=== PATIENT | male | born 1940 | race Caucasian/White ===

== ENCOUNTER 2017-01-15 00:35 | Inpatient (IN) | payer OTHER ==
--- NOTE | 2017-01-15 00:50 | CPEKG ---
Heart Rate: 82 RR Interval: 732 QRSD Interval: 80 QT Interval: 408 QTC Interval: 477 QRS [place]: 69 T Wave [place]: 62 EKG Severity - ABNORMAL ECG - EKG Impression: ATRIAL FIBRILLATION EKG Impression: BORDERLINE PROLONGED QT INTERVAL Electronically Signed By: Umer Bañuelos 15-Jan-2017 06:38:30
[2017-01-15] MEDS ORDERED: ONDANSETRON 4 MG/2 ML VIAL ONE (00:51)
[2017-01-15] MEDS ORDERED: HYDROmorphONE/DILAUDID 1 MG/ML INJ ONE (00:59)
[2017-01-15] MEDS ORDERED: HYDROmorphONE/DILAUDID 1 MG/ML INJ IVP ONE ×3 (01:01→01:57)
[2017-01-15] MEDS ORDERED: ONDANSETRON 4 MG/2 ML VIAL IVP ONE ×2 (01:08→03:20)
[2017-01-15] MEDS ORDERED: PANTOPRAZOLE SODIUM 40 MG VIAL IVP ONE (01:09)
[2017-01-15] MEDS ORDERED: NS 1,000 ML IV ONE (01:09)
[2017-01-15] MEDS ORDERED: IOPAMIDOL (ISOVUE-300) 100 ML BTL ONE (01:12)
--- NOTE | 2017-01-15 01:12 | EDPHY ---
H & P Stated Complaint: EPIGASTRIC PAIN AFTER EATING A BIG MAC AT 7 P.M. Time Seen by Provider: 01/15/17 00:55 HPI/ROS: Chief Complaint: Abdominal pain HPI: 76-year-old male with past medical history of hypertension began having epigastric and left upper abdominal pain about 7 o'clock this evening. Has some nausea but no vomiting. No fevers or chills. No chest pain or shortness of breath. Pain is constant. Severe at an 9/10. Does not have a history of similar pain in the past. Is denies any dark tarry stools or blood in his stool. There are no aggravating or alleviating factors. ROS: 10 point Review of Systems is negative except as noted in the HPI. PMH: Hypertension Medications: Lisinopril Social History: No smoking, occasional alcohol, no recreational drug use Family History: non-contributory Physical Exam: Gen: Awake, Alert, No Distress HEENT: Nose: no rhinorrhea Eyes: PERRLA, EOMI Mouth: Moist mucosa Neck: Supple, no JVD Chest: nontender, lungs clear to auscultation Heart: S1, S2 normal, no murmur Abd: Soft, moderate epigastric tenderness with voluntary guarding with some left upper quadrant tenderness as well. Ext: no edema, non-tender Skin: no rash Neuro: CN II-XII intact, Sensation grossly intact, Strength 5/5 in bilateral upper and lower extremities - Personal History Current Tetanus/Diphtheria Vaccine: Unsure Current Tetanus Diphtheria and Acellular Pertussis (TDAP): Unsure - Medical/Surgical History Hx Asthma: No Hx Chronic Respiratory Disease: No Hx Diabetes: No Hx Cardiac Disease: No Hx Renal Disease: No Hx Cirrhosis: No Hx Alcoholism: No Hx HIV/AIDS: No Hx Splenectomy or Spleen Trauma: No Other PMH: HTN, - Social History Smoking Status: Never smoked Constitutional: Initial Vital Signs Temperature (C) 36.8 C 01/15/17 00:36 Heart Rate 71 01/15/17 00:36 Respiratory Rate 18 01/15/17 00:36 Blood Pressure 153/86 H 01/15/17 00:36 O2 Sat (%) 93 01/15/17 00:36 O2 Delivery Mode Nasal Cannula O2 (L/minute) 2 Allergies/Adverse Reactions: No Known Allergies Allergy (Unverified 01/15/17 00:38) Home Medications: Medication Instructions Recorded Lisinopril 10 mg PO 01/15/17 Medical Decision Making - Diagnostics Imaging Results: CT scan shows fluid around the pancreas, no other acute intra-abdominal process per Dr. Workman. There are no findings suggestive of cholecystitis. There is no intrahepatic ductal dilatation. No other findings suggestive of gallstone at this time. ED Course/Re-evaluation: Patient's lipase is noted. He has no elevation is LFTs. No findings suggestive of acute cholecystitis or common bile duct stone. He has required multiple doses of Dilaudid. Plan will be for admission. I have discussed with Dr. Vazquez, hospitalist. Will admit to his service for further care. - Data Points Laboratory Results: Laboratory Results 01/15/17 00:50 01/15/17 00:50 01/15/17 01/15/17 00:50 00:50 WBC 13.52 10^3/uL H 10^3/uL (3.80-9.50) RBC 5.38 10^6/uL 10^6/uL (4.40-6.38) Hgb 16.3 g/dL g/dL (13.7-17.5) Hct 47.5 % % (40.0-51.0) MCV 88.3 fL fL (81.5-99.8) MCH 30.3 pg pg (27.9-34.1) MCHC 34.3 g/dL g/dL (32.4-36.7) RDW 13.4 % % (11.5-15.2) Plt Count 306 10^3/uL 10^3/uL (150-400) MPV 9.9 fL fL (8.7-11.7) Neut % (Auto) 90.4 % H % (39.3-74.2) Lymph % (Auto) 5.3 % L % (15.0-45.0) [place] % (Auto) 3.6 % L % (4.5-13.0) Eos % (Auto) 0.0 % L % (0.6-7.6) Baso % (Auto) 0.2 % L % (0.3-1.7) Nucleat RBC Rel Count 0.0 % % (0.0-0.2) Absolute Neuts (auto) 12.21 10^3/uL H 10^3/uL (1.70-6.50) Absolute Lymphs (auto) 0.72 10^3/uL L 10^3/uL (1.00-3.00) Absolute Monos (auto) 0.49 10^3/uL 10^3/uL (0.30-0.80) Absolute Eos (auto) 0.00 10^3/uL L 10^3/uL (0.03-0.40) Absolute Basos (auto) 0.03 10^3/uL 10^3/uL (0.02-0.10) Absolute Nucleated RBC 0.00 10^3/uL 10^3/uL (0-0.01) Immature Gran % 0.5 % % (0.0-1.1) Immature Gran # 0.07 10^3/uL 10^3/uL (0.00-0.10) Sodium 141 mEq/L mEq/L (134-144) Potassium 4.1 mEq/L mEq/L (3.5-5.2) Chloride 100 mEq/L mEq/L (97-110) Carbon Dioxide 24 mEq/l mEq/l (22-31) Anion Gap 17 mEq/L H mEq/L (8-16) BUN 16 mg/dL mg/dL (7-23) Creatinine 1.0 mg/dL mg/dL (0.7-1.3) Estimated GFR > 60 Glucose 174 mg/dL H mg/dL (70-100) Calcium 9.3 mg/dL mg/dL (8.5-10.4) Total Bilirubin 0.9 mg/dL mg/dL (0.1-1.4) AST 26 IU/L IU/L (17-59) ALT 29 IU/L IU/L (21-72) Alkaline Phosphatase 82 IU/L IU/L (38-126) Troponin I < 0.012 ng/mL ng/mL (0.000-0.034) Total Protein 7.5 g/dL g/dL (6.3-8.2) Albumin 4.0 g/dL g/dL (3.5-5.0) Lipase 6438 IU/L H IU/L (23-300) Medications Given: Discontinued Medications Hydromorphone HCl (Dilaudid) 1 mg IVP EDNOW ONE Stop: 01/15/17 01:02 Last Admin: 01/15/17 01:03 Dose: 1 mg Hydromorphone HCl (Dilaudid) 0.5 mg IVP EDNOW ONE Stop: 01/15/17 01:09 Last Admin: 01/15/17 01:09 Dose: 0.5 mg Hydromorphone HCl (Dilaudid) 1 mg IVP EDNOW ONE Stop: 01/15/17 01:58 Last Admin: 01/15/17 02:01 Dose: 1 mg Sodium Chloride (Ns) 1,000 mls @ 0 mls/hr IV ONCE ONE PRN Reason: Wide Open Stop: 01/15/17 01:10 Last Admin: 01/15/17 01:10 Dose: 1,000 mls Ondansetron HCl (Zofran) 4 mg IVP EDNOW ONE Stop: 01/15/17 01:09 Last Admin: 01/15/17 01:10 Dose: 4 mg Pantoprazole Sodium (Protonix) 40 mg IVP EDNOW ONE Stop: 01/15/17 01:10 Last Admin: 01/15/17 01:13 Dose: 40 mg Departure - Departure Disposition: [facility] Inpatient Acute Clinical Impression: Pancreatitis Condition: Fair Referrals: NIKKY ABBOTT [Primary Care Provider] - As per Instructions
[2017-01-15 01:26] LABS: ALANINE AMINOTRANSFERASE 29 IU/L (21-72); ALKALINE PHOSPHATASE 82 IU/L (38-126); ANION GAP 17 mEq/L (8-16); ASPARTATE AMINOTRANSFERASE 26 IU/L (17-59); BILIRUBIN,TOTAL 0.9 mg/dL (0.1-1.4); CALCIUM 9.3 mg/dL (8.5-10.4); CARBON DIOXIDE 24 mEq/l (22-31); CHLORIDE 100 mEq/L (97-110); GLOMERULAR FILTRATION RATE > 60; GLUCOSE 174 mg/dL (70-100); POTASSIUM 4.1 mEq/L (3.5-5.2); SODIUM 141 mEq/L (134-144); TOTAL PROTEIN 7.5 g/dL (6.3-8.2)
[2017-01-15 01:37] LABS: % IMMATURE GRANULYOCYTES 0.5 % (0.0-1.1); ABSOLUTE IMMATURE GRANULOCYTES 0.07 10^3/uL (0.00-0.10); ADD DIFF? NO; ADD MORPH? NO; ADD SCAN? NO; ATYPICAL LYMPHOCYTE FLAG 10 (0-99); FRAGMENT RBC FLAG 0 (0-99); HEMATOCRIT 47.5 % (40.0-51.0); HEMOGLOBIN 16.3 g/dL (13.7-17.5); LEFT SHIFT FLG 0 (0-99); LIPEMIA HEMOLYSIS FLAG 90 (0-99); MEAN CELL HEMOGLOBIN 30.3 pg (27.9-34.1); MEAN CELL HEMOGLOBIN CONCENTR. 34.3 g/dL (32.4-36.7); MEAN CELL VOLUME 88.3 fL (81.5-99.8); MEAN PLATELET VOLUME 9.9 fL (8.7-11.7); PLATELET CLUMPS FLAG 10 (0-99); PLATELET COUNT 306 10^3/uL (150-400); RED BLOOD CELL COUNT 5.38 10^6/uL (4.40-6.38); RED CELL DISTRIBUTION WIDTH 13.4 % (11.5-15.2); TROPONIN I < 0.012 ng/mL (0.000-0.034)
[2017-01-15] MEDS ORDERED: ZOLPIDEM TARTRATE 5 MG TAB PO ONE (01:40)
[2017-01-15] MEDS ORDERED: lamoTRIgine 25 MG TAB PO ONE (01:40)
[2017-01-15] MEDS ORDERED: LURASIDONE HCL 40 MG TAB PO ONE (01:41)
[2017-01-15] MEDS ORDERED: HYDROmorphONE/DILAUDID 1 MG/ML INJ IVP PRN (02:19)
[2017-01-15] MEDS ORDERED: oxyCODONE IR 5 MG TAB PO PRN (02:19)
[2017-01-15] MEDS ORDERED: ONDANSETRON 4 MG/2 ML VIAL IVP PRN (02:19)
[2017-01-15] MEDS ORDERED: ONDANSETRON DISINTEGRATING 4 MG TAB PO PRN (02:19)
--- NOTE | 2017-01-15 02:42 | PDGENHP ---
History and Physical - Chief Complaint Abdominal pain - History of Present Illness 76 yo M w/ HTN presents with abdominal pain. Patient reports first noticing epigastric abdominal pain around 7 PM last evening. He then developed vomiting. The pain became severe so he came to the ED. He has never had pain like this in the past. Of note, he has been dealing with flu-like symptoms for about 10 days prior to this, which he thinks are now improving. He drinks 1-2 beers weekly and does not smoke cigarettes. In the ED lipase was elevated and CT was c/w pancreatic inflammation. Patient was admitted for management of pancreatitis of unclear etiology. History Information - Allergies/Home Medication List Allergies/Adverse Reactions: No Known Allergies Allergy (Unverified 01/15/17 00:38) Home Medications: Lisinopril 10 mg PO 01/15/17 [Last Taken Unknown] I have personally reviewed and updated: family history, medical history - Past Medical History hypertension - Family History Additional family history: Asked, denies family hx of pancreatitis - Social History Smoking Status: Never smoked Alcohol Use: Occasionally (1-2 beers weekly) Review of Systems Review of Systems: ROS: 10pt was reviewed & negative except for what was stated in HPI & below Physical Exam Physical Exam: Temp Pulse Resp BP Pulse Ox 36.7 C 74 16 174/96 H 95 01/15/17 02:02 01/15/17 02:02 01/15/17 02:02 01/15/17 02:02 01/15/17 02:02 Constitutional: no apparent distress, uncomfortable Eyes: PERRL, EOMI Ears, Nose, Mouth, Throat: moist mucous membranes, no oral mucosal ulcers Cardiovascular: regular rate and rhythym, no murmur, rub, or gallop Respiratory: no respiratory distress, clear to auscultation Gastrointestinal: normoactive bowel sounds, tenderness (Epi-gastric), No jackman' s sign, No guarding, No rebound, No distension Skin: warm, normal color Neurologic: AAOx3, CN II-XII Intact Psychiatric: interacting appropriately, not anxious Lab Data & Imaging Review 01/15/17 00:50 01/15/17 00:50 WBC 13.52 10^3/uL (3.80-9.50) H 01/15/17 00:50 RBC 5.38 10^6/uL (4.40-6.38) 01/15/17 00:50 Hgb 16.3 g/dL (13.7-17.5) 01/15/17 00:50 Hct 47.5 % (40.0-51.0) 01/15/17 00:50 MCV 88.3 fL (81.5-99.8) 01/15/17 00:50 MCH 30.3 pg (27.9-34.1) 01/15/17 00:50 MCHC 34.3 g/dL (32.4-36.7) 01/15/17 00:50 RDW 13.4 % (11.5-15.2) 01/15/17 00:50 Plt Count 306 10^3/uL (150-400) 01/15/17 00:50 MPV 9.9 fL (8.7-11.7) 01/15/17 00:50 Neut % (Auto) 90.4 % (39.3-74.2) H 01/15/17 00:50 Lymph % (Auto) 5.3 % (15.0-45.0) L 01/15/17 00:50 [place] % (Auto) 3.6 % (4.5-13.0) L 01/15/17 00:50 Eos % (Auto) 0.0 % (0.6-7.6) L 01/15/17 00:50 Baso % (Auto) 0.2 % (0.3-1.7) L 01/15/17 00:50 Nucleat RBC Rel Count 0.0 % (0.0-0.2) 01/15/17 00:50 Absolute Neuts (auto) 12.21 10^3/uL (1.70-6.50) H 01/15/17 00:50 Absolute Lymphs (auto) 0.72 10^3/uL (1.00-3.00) L 01/15/17 00:50 Absolute Monos (auto) 0.49 10^3/uL (0.30-0.80) 01/15/17 00:50 Absolute Eos (auto) 0.00 10^3/uL (0.03-0.40) L 01/15/17 00:50 Absolute Basos (auto) 0.03 10^3/uL (0.02-0.10) 01/15/17 00:50 Absolute Nucleated RBC 0.00 10^3/uL (0-0.01) 01/15/17 00:50 Immature Gran % 0.5 % (0.0-1.1) 01/15/17 00:50 Immature Gran # 0.07 10^3/uL (0.00-0.10) 01/15/17 00:50 Sodium 141 mEq/L (134-144) 01/15/17 00:50 Potassium 4.1 mEq/L (3.5-5.2) 01/15/17 00:50 Chloride 100 mEq/L (97-110) 01/15/17 00:50 Carbon Dioxide 24 mEq/l (22-31) 01/15/17 00:50 Anion Gap 17 mEq/L (8-16) H 01/15/17 00:50 BUN 16 mg/dL (7-23) 01/15/17 00:50 Creatinine 1.0 mg/dL (0.7-1.3) 01/15/17 00:50 Estimated GFR > 60 01/15/17 00:50 Glucose 174 mg/dL (70-100) H 01/15/17 00:50 Calcium 9.3 mg/dL (8.5-10.4) 01/15/17 00:50 Total Bilirubin 0.9 mg/dL (0.1-1.4) 01/15/17 00:50 AST 26 IU/L (17-59) 01/15/17 00:50 ALT 29 IU/L (21-72) 01/15/17 00:50 Alkaline Phosphatase 82 IU/L (38-126) 01/15/17 00:50 Troponin I < 0.012 ng/mL (0.000-0.034) 01/15/17 00:50 Total Protein 7.5 g/dL (6.3-8.2) 01/15/17 00:50 Albumin 4.0 g/dL (3.5-5.0) 01/15/17 00:50 Lipase 6438 IU/L (23-300) H 01/15/17 00:50 Imaging Review: CT A/P reveals acute pancreatitis w/ paracolic fluid. Visualized and Interpreted EKG results: Yes EKG Interpretation: Positive for: other (Aflutter w/ variable block) Assessment & Plan Assessment: 76 yo M w/ hx of HTN presents w/ acute pancreatitis of unclear etiology. Plan: 1. Acute pancreatitis - Unclear etiology; lipase >6000, BISAP score of 1 denoting generally low risk for complications. Patient does not have a significant ETOH history and denies prior gallstones. He has had a cold for about 10 days so could be a viral etiology. Also, patient on lisinopril, which has a ~1% known risk of medication induced pancreatitis. - NPO, mIVF w/ NS @ 200 - Oxycodone, Dilaudid PRN for pain - RUQ U/S to evaluate for gallstones - Will change lisinopril 10 mg qD to amlodipine 10 mg qD 2. Afib/flutter - Incidentally found on admission ECG. Patient hemodynamically stable and rate controlled without medication. He has no prior history of this. [id number] of 3 for HTN and age, so could consider AC. - Monitor on telemetry - Consider AC vs. ASA after acute illness 3. HTN - Will change lisinopril to amlodipine as above. Diet - NPO, ADAT Code - Full Ppx - SCDs Dispo - Admit to observation status
[2017-01-15] MEDS ORDERED: HYDROmorphONE/DILAUDID 2 MG/ML INJ IVP ONE (03:20)
[2017-01-15] MEDS ORDERED: PROMETHAZINE HCL 25 MG/ML INJ IVP PRN (04:05)
[2017-01-15] MEDS: NS 1,000 ML IV SCH ×4 (04:12→19:21)
[2017-01-15 04:34] LABS: % IMMATURE GRANULYOCYTES 0.4 % (0.0-1.1); ABSOLUTE IMMATURE GRANULOCYTES 0.07 10^3/uL (0.00-0.10); ADD DIFF? NO; ADD MORPH? NO; ADD SCAN? NO; ATYPICAL LYMPHOCYTE FLAG 0 (0-99); FRAGMENT RBC FLAG 0 (0-99); HEMATOCRIT 46.5 % (40.0-51.0); HEMOGLOBIN 15.5 g/dL (13.7-17.5); LEFT SHIFT FLG 0 (0-99); LIPEMIA HEMOLYSIS FLAG 80 (0-99); MEAN CELL HEMOGLOBIN 29.5 pg (27.9-34.1); MEAN CELL HEMOGLOBIN CONCENTR. 33.3 g/dL (32.4-36.7); MEAN CELL VOLUME 88.6 fL (81.5-99.8); MEAN PLATELET VOLUME 9.7 fL (8.7-11.7); PLATELET CLUMPS FLAG 10 (0-99); PLATELET COUNT 282 10^3/uL (150-400); RED BLOOD CELL COUNT 5.25 10^6/uL (4.40-6.38); RED CELL DISTRIBUTION WIDTH 13.4 % (11.5-15.2)
[2017-01-15 04:42] LABS: ANION GAP 15 mEq/L (8-16); CALCIUM 8.6 mg/dL (8.5-10.4); CARBON DIOXIDE 21 mEq/l (22-31); CHLORIDE 103 mEq/L (97-110); CREATININE 0.8 mg/dL (0.7-1.3); GLOMERULAR FILTRATION RATE > 60; GLUCOSE 171 mg/dL (70-100); SODIUM 139 mEq/L (134-144)
--- NOTE | 2017-01-15 10:11 | ASMTCASEMG ---
Living Arrangements What is your living Answers: With Spouse arrangement? Who do you live with? Type Of Residence What kind of residence do Answers: House you live in? Discharge Plan Comments Coordination Status Comments Notes: CM spoke w/ LAURA Bentley regarding D/C POC. Pt is a 76 y/o man admitted for pancreatitis. Anticipates that pt will d/c independent when medically stable w/ supportive . No therapies ordered at this time. CM available for d/c needs. Plan: Independent Date Signed: 01/15/2017 10:11 AM Electronically Signed By:MINNA Maradiaga
[2017-01-15 10:19] LABS: COLOR YELLOW; LEUKOCYTE ESTERASE,URINE NEGATIVE (NEGATIVE); NITRITE,URINE NEGATIVE (NEGATIVE)
[2017-01-15 10:24] LABS: MUCUS TRACE /lpf (NONE-1+)
--- NOTE | 2017-01-15 12:08 | CPEKG ---
Heart Rate: 102 RR Interval: 588 P-R Interval: 208 QRSD Interval: 78 QT Interval: 340 QTC Interval: 443 P [place]: 61 QRS [place]: 67 T Wave [place]: 14 EKG Severity - OTHERWISE NORMAL ECG - EKG Impression: SINUS TACHYCARDIA Electronically Signed By: John Bergman 15-Jan-2017 13:10:02
--- NOTE | 2017-01-15 13:37 | HOSPPROG ---
Hospitalist Progress Note Assessment/Plan: #Acute pancreatis: denies heavy Etoh, no family or personal h/o stones. May be due to DAVID-I?. This was changed -no e/o abscess or necrosis on CT. -supportive care: IVFs, antiemetics, IV morphine (nausea with Dilaudid) #Leukocytosis: suspect stress reaction. Afebrile. No e/o abscess on imaging. Monitor closely #Paroxysmal a fib: no prior episodes, likely triggered by acute illness. Repeat EKG CHADsVasc 3 Can consider AC; I discussed anticoagulation with he and . #Accelerated HTN: driven by pain. Changed DAVID-I to Norvasc #NPO #DVT ppx: SCDs #Disp: warrants inpatient admission with acute pancreatitis, requiring IV opioids, fluids Subjective: 08/25 crampy abd pain. Nausea with dilaudid Objective: Vital Signs Temp Pulse Resp BP Pulse Ox 37.0 C 105 H 13 175/97 H 93 01/15/17 11:30 01/15/17 11:30 01/15/17 11:30 01/15/17 11:30 01/15/17 11:30 Laboratory Results 01/15/17 04:08 01/15/17 04:08 01/14/17 01/15/17 01/16/17 05:59 05:59 05:59 Intake Total 1000 Balance 1000 - Physical Exam Constitutional: uncomfortable Eyes: PERRL Ears, Nose, Mouth, Throat: dry mucous membranes Cardiovascular: regular rate and rhythym, no murmur, rub, or gallop Respiratory: no respiratory distress Gastrointestinal: tenderness (dolly LUQ, epigastrum, quiet BS), No rebound, No distension Genitourinary: no bladder fullness Skin: warm Musculoskeletal: full muscle strength Neurologic: AAOx3 Psychiatric: interacting appropriately ICD10 Worksheet Patient Problems: Problems Problem Status Onset Pancreatitis Acute
[2017-01-16] MEDS: NS 1,000 ML IV SCH ×4 (00:33→13:56)
[2017-01-16 04:16] LABS: HEMATOCRIT 44.4 % (40.0-51.0); HEMOGLOBIN 15.3 g/dL (13.7-17.5); MEAN CELL HEMOGLOBIN 30.8 pg (27.9-34.1); MEAN CELL HEMOGLOBIN CONCENTR. 34.5 g/dL (32.4-36.7); MEAN CELL VOLUME 89.3 fL (81.5-99.8); RED BLOOD CELL COUNT 4.97 10^6/uL (4.40-6.38); RED CELL DISTRIBUTION WIDTH 14.2 % (11.5-15.2)
[2017-01-16] MEDS ORDERED: FLU VACC QS 2017-18 (3YR+)/PF 0.5 ML SYR (FLUARIX QUAD) IM ONE (08:21)
[2017-01-16] MEDS ORDERED: PNEUMOC 13-VAL CONJ-DIP CRM/PF 0.5 ML SYR IM ONE (08:21)
[2017-01-16] MEDS ORDERED: HYDROmorphone HCL/NS/PF 0.4 MG/2 ML SYR IVP PRN (09:00)
[2017-01-16] MEDS ORDERED: NS 500 ML IV ONE (11:18)
--- NOTE | 2017-01-16 11:20 | HOSPPROG ---
Hospitalist Progress Note Assessment/Plan: 76 yo M with pmh of HTN presenting with acute pancreatitis # acute pancreatitis: with significant abdominal pain and lipase > 6000 as well as radiographic evidence of pancreatitis. Etiology unclear--no history of heavy drinking, no gallstones on imaging. Will get lipid panel to r/o hypertriglyceridemia and MRCP given patients age etc to firmly r/o anatomic abnormality. Other potential etiologies would include idiopathic versus medication related (lisinopril? though has been on that x 2 years) versus autoimmune. Continue conservative mgmt with IVF, bowel rest, IV opiates and IV antiemetics # leukocytosis: wbc continues to rise significantly, patient is afebrile and suspect this is all driven by pancreatitis rather than a secondary infection, will continue to trend, again MRCP pending # paroxysmal a fib: new dx apparently since admission, likely driven by pancreatitis, rate improved with IV metop and will transition to oral metop and monitor # htn: previously uncontrolled, will continue amlodipine and now metoprolol as above # dvt ppx: will start lovenox # IP status, suspect he will require > 48 hours stay for eval/mgmt of above Patient new to my care. Old records reviewed and summarized as above. Care plan reviewed with patients present at bedside. Subjective: no significant overnight events, patient notes he does not feel much better if at all today, continues to have abdominal pain Objective: Vital Signs Temp Pulse Resp BP Pulse Ox 36.3 C 110 H 28 H 133/86 H 90 L 01/16/17 10:49 01/16/17 10:49 01/16/17 10:49 01/16/17 10:49 01/16/17 10:49 Laboratory Results 01/16/17 03:29 01/15/17 01/16/17 01/17/17 05:59 05:59 05:59 Output Total 1550 400 Balance -1550 -400 awake alert mild distress anicteric op clear irreg irreg no mrg cta b soft ttp mid epigastric region dec bs throughout no rebound or guarding no cce warm dry well perfused oriented appropriate ICD10 Worksheet Patient Problems: Problems Problem Status Onset Pancreatitis Acute
[2017-01-16] MEDS: METOPROLOL TARTRATE 5 MG/5 ML INJ IVP SCH ×3 (12:40→13:06)
[2017-01-16] MEDS ORDERED: MAGNESIUM HYDROXIDE 30 ML UDCUP PO PRN (14:07)
[2017-01-16] MEDS ORDERED: POLYETHYLENE GLYCOL 3350 17 GM PKT PO PRN (14:07)
[2017-01-16] MEDS ORDERED: LACTULOSE 20 GM/30 ML UDCUP PO PRN (14:07)
[2017-01-16] MEDS ORDERED: BISACODYL 10 MG SUPP PR PRN (14:07)
[2017-01-16] MEDS: ENOXAPARIN 40 MG/0.4 ML SYR SC SCH (17:45)
[2017-01-16 18:44] LABS: CHOLESTEROL 87 mg/dL (140-220); CHOLESTEROL/HDL RATIO 2.18 RATIO (1.00-4.97); HIGH DENSITY LIPOPROTEIN 40 mg/dL (40-65); LDL/HDL RATIO 0.98 RATIO (1.00-3.64); LOW DENSITY LIPOPROTEIN 39 mg/dL (80-100); NON-HIGH DENSITY LIPOPROTEIN 47 mg/dL (90-129); TRIGLYCERIDE 43 mg/dL (40-150); VERY LOW DENSITY LIPOPROTEINS 8 mg/dL (8-25)
[2017-01-16] MEDS: METOPROLOL TARTRATE 25 MG TAB PO SCH (20:04)
[2017-01-16] MEDS: SENNOSIDES/DOCUSATE SODIUM TAB PO SCH (20:04)
[2017-01-17 04:52] LABS: ADD DIFF? YES; ADD MORPH? NO; ADD SCAN? NO; ATYPICAL LYMPHOCYTE FLAG 0 (0-99); FRAGMENT RBC FLAG 0 (0-99); HEMATOCRIT 44.4 % (40.0-51.0); HEMOGLOBIN 14.5 g/dL (13.7-17.5); LEFT SHIFT FLG 0 (0-99); LIPEMIA HEMOLYSIS FLAG 80 (0-99); MEAN CELL HEMOGLOBIN 29.5 pg (27.9-34.1); MEAN CELL HEMOGLOBIN CONCENTR. 32.7 g/dL (32.4-36.7); MEAN CELL VOLUME 90.4 fL (81.5-99.8); MEAN PLATELET VOLUME 10.5 fL (8.7-11.7); PLATELET CLUMPS FLAG 0 (0-99); PLATELET COUNT 214 10^3/uL (150-400); RED BLOOD CELL COUNT 4.91 10^6/uL (4.40-6.38); RED CELL DISTRIBUTION WIDTH 14.2 % (11.5-15.2)
[2017-01-17 05:06] LABS: ANION GAP 9 mEq/L (8-16); CALCIUM 8.4 mg/dL (8.5-10.4); CARBON DIOXIDE 27 mEq/l (22-31); CHLORIDE 106 mEq/L (97-110); GLOMERULAR FILTRATION RATE > 60; GLUCOSE 98 mg/dL (70-100); POTASSIUM 4.1 mEq/L (3.5-5.2); SODIUM 142 mEq/L (134-144)
[2017-01-17 05:19] LABS: PLATELET ESTIMATE ADEQUATE (ADEQ); TOXIC GRANULATION PRESENT
[2017-01-17] MEDS: NS 1,000 ML IV SCH ×2 (09:05→15:58)
[2017-01-17] MEDS: SENNOSIDES/DOCUSATE SODIUM TAB PO SCH ×2 (09:07→20:15)
[2017-01-17] MEDS: METOPROLOL TARTRATE 25 MG TAB PO SCH ×2 (09:07→20:15)
[2017-01-17] MEDS: ENOXAPARIN 40 MG/0.4 ML SYR SC SCH (09:07)
[2017-01-17] MEDS ORDERED: PNEUMOC 13-VAL CONJ-DIP CRM/PF 0.5 ML SYR IM ONE (10:52)
--- NOTE | 2017-01-17 12:17 | HOSPPROG ---
Hospitalist Progress Note Assessment/Plan: 76 yo M with pmh of HTN presenting with acute pancreatitis # acute pancreatitis: with significant abdominal pain and lipase > 6000 as well as radiographic evidence of pancreatitis. Etiology unclear--no history of heavy drinking, no gallstones on imaging, lipid panel unremarkable. Today patient is having bowel sounds and passing some gas--will advance to clear liquids and monitor. MRCP performed and results currently pending. Continue IVF, IV and oral opiates, antiemetics as needed. # leukocytosis: wbc remains significantly elevated though trending slightly down since yesterday. Patient remains afebrile and suspect this is all driven by pancreatitis rather than a secondary infection, will continue to trend, again MRCP pending # paroxysmal a fib: new dx apparently since admission, likely driven by pancreatitis, increased metoprolol for both slightly increased rate and htn. Will repeat ECG. # htn: previously uncontrolled, will continue amlodipine and now metoprolol as above # dvt ppx: lovenox # IP status, suspect he will require > 48 hours stay for eval/mgmt of above Care plan reviewed with patients present at bedside. Subjective: patient notes feeling very slightly better today, abdominal pain continues but has decreased in severity, has been burping and noticing bowel activity but no bm or gas Objective: Vital Signs Temp Pulse Resp BP Pulse Ox 36.7 C 96 27 H 167/97 H 93 01/17/17 11:35 01/17/17 11:35 01/17/17 11:35 01/17/17 11:35 01/17/17 11:35 Laboratory Results 01/17/17 03:40 01/17/17 03:40 01/16/17 01/17/17 01/18/17 05:59 05:59 05:59 Intake Total 2500 Output Total 1550 900 Balance -1550 1600 awake alert mild distress anicteric op clear irreg irreg no mrg cta b soft ttp mid epigastric region dec bs throughout no rebound or guarding no cce warm dry well perfused oriented appropriate - Time Spent With Patient Time Spent with Patient: greater than 35 minutes Time Spent with Patient: Greater than 35 minutes spent on this patients care, greater than 50% of time spent counseling, educating, and coordinating care regarding the above mentioned plan. ICD10 Worksheet Patient Problems: Problems Problem Status Onset Pancreatitis Acute
[2017-01-17] MEDS ORDERED: FLU VACC QS 2017-18 (3YR+)/PF 0.5 ML SYR (FLUARIX QUAD) IM ONE (12:30)
--- NOTE | 2017-01-17 14:18 | CPEKG ---
Heart Rate: 105 RR Interval: 571 QRSD Interval: 80 QT Interval: 328 QTC Interval: 434 QRS [place]: 56 T Wave [place]: -10 EKG Severity - ABNORMAL ECG - EKG Impression: ATRIAL FIBRILLATION, V-RATE 93-116 EKG Impression: BORDERLINE T ABNORMALITIES, DIFFUSE LEADS Electronically Signed By: John Bergman 18-Jan-2017 09:38:52
[2017-01-18 04:56] LABS: % IMMATURE GRANULYOCYTES 0.7 % (0.0-1.1); ABSOLUTE IMMATURE GRANULOCYTES 0.13 10^3/uL (0.00-0.10); ADD DIFF? NO; ADD MORPH? NO; ADD SCAN? NO; ATYPICAL LYMPHOCYTE FLAG 10 (0-99); FRAGMENT RBC FLAG 0 (0-99); HEMATOCRIT 41.7 % (40.0-51.0); LEFT SHIFT FLG 0 (0-99); LIPEMIA HEMOLYSIS FLAG 80 (0-99); MEAN CELL HEMOGLOBIN 29.8 pg (27.9-34.1); MEAN CELL HEMOGLOBIN CONCENTR. 33.6 g/dL (32.4-36.7); MEAN CELL VOLUME 88.7 fL (81.5-99.8); PLATELET CLUMPS FLAG 10 (0-99); PLATELET COUNT 229 10^3/uL (150-400); RED CELL DISTRIBUTION WIDTH 14.1 % (11.5-15.2)
[2017-01-18 05:23] LABS: ANION GAP 11 mEq/L (8-16); CALCIUM 8.1 mg/dL (8.5-10.4); CARBON DIOXIDE 26 mEq/l (22-31); CHLORIDE 103 mEq/L (97-110); CREATININE 0.7 mg/dL (0.7-1.3); GLOMERULAR FILTRATION RATE > 60; GLUCOSE 100 mg/dL (70-100); POTASSIUM 3.5 mEq/L (3.5-5.2); SODIUM 140 mEq/L (134-144)
[2017-01-18] MEDS: SENNOSIDES/DOCUSATE SODIUM TAB PO SCH ×2 (08:55→20:42)
[2017-01-18] MEDS: METOPROLOL TARTRATE 25 MG TAB PO SCH ×2 (08:56→20:43)
[2017-01-18] MEDS: ENOXAPARIN 40 MG/0.4 ML SYR SC SCH (08:58)
[2017-01-18] MEDS: KETOROLAC 30 MG/1 ML SDV IVP PRN ×2 (10:14→16:16)
--- NOTE | 2017-01-18 15:17 | ASMTCMCOM ---
CM Note CM Note Notes: Continues to have abdominal pain, but reports that it's better. PT reports that patient will be independent of HC needs. Date Signed: 01/18/2017 03:17 PM Electronically Signed By:Maribel Perry LCSW
--- NOTE | 2017-01-18 15:55 | HOSPPROG ---
Hospitalist Progress Note Assessment/Plan: 76 yo M with pmh of HTN presenting with acute pancreatitis # acute pancreatitis: with significant abdominal pain and lipase > 6000 as well as radiographic evidence of pancreatitis. Etiology unclear--no history of heavy drinking, no gallstones on imaging, lipid panel unremarkable. Continues to symptomatically improve and tolerating clears, attempting to transition to oral pain meds. Will continue to advance diet as tolerated. Given no clear etiology discovered, lisinopril was discontinued as possible precipitating med. # leukocytosis: wbc continues to trend down. Patient remains afebrile and suspect this is all driven by pancreatitis rather than a secondary infection, will continue to trend, again MRCP pending # paroxysmal a fib: new dx apparently since admission, likely driven by pancreatitis, increased metoprolol for both slightly increased rate and htn. Will repeat ECG. # htn: previously uncontrolled, will continue amlodipine and now metoprolol as above # dvt ppx: lovenox # IP status, suspect he will require > 48 hours stay for eval/mgmt of above Care plan reviewed with patients present at bedside. Subjective: no significant overnight events, patient did have an episode of confusion last night that nursing felt was a reaction to pain meds, today pain continues to improve, having some hunger Objective: Vital Signs Temp Pulse Resp BP Pulse Ox 36.3 C 99 27 H 152/83 H 94 01/18/17 15:49 01/18/17 15:49 01/18/17 15:49 01/18/17 15:49 01/18/17 15:49 Laboratory Results 01/18/17 04:24 01/18/17 04:24 01/17/17 01/18/17 01/19/17 05:59 05:59 05:59 Intake Total 2500 2982 200 Output Total 900 1400 526 Balance 1600 1582 -326 awake alert mild distress anicteric op clear irreg irreg no mrg cta b soft ttp mid epigastric region dec bs throughout no rebound or guarding no cce warm dry well perfused oriented appropriate ICD10 Worksheet Patient Problems: Problems Problem Status Onset Pancreatitis Acute
[2017-01-18] MEDS: NS 1,000 ML IV SCH (16:19)
[2017-01-18] MEDS: ACETAMINOPHEN 325 MG TAB PO PRN (20:46)
[2017-01-19 04:09] LABS: % IMMATURE GRANULYOCYTES 0.3 % (0.0-1.1); ABSOLUTE IMMATURE GRANULOCYTES 0.04 10^3/uL (0.00-0.10); ADD DIFF? NO; ADD MORPH? NO; ADD SCAN? NO; ATYPICAL LYMPHOCYTE FLAG 10 (0-99); FRAGMENT RBC FLAG 0 (0-99); HEMATOCRIT 38.8 % (40.0-51.0); LEFT SHIFT FLG 10 (0-99); LIPEMIA HEMOLYSIS FLAG 80 (0-99); MEAN CELL HEMOGLOBIN 29.6 pg (27.9-34.1); MEAN CELL HEMOGLOBIN CONCENTR. 33.5 g/dL (32.4-36.7); MEAN CELL VOLUME 88.4 fL (81.5-99.8); MEAN PLATELET VOLUME 9.9 fL (8.7-11.7); PLATELET CLUMPS FLAG 0 (0-99); PLATELET COUNT 215 10^3/uL (150-400); RED BLOOD CELL COUNT 4.39 10^6/uL (4.40-6.38); RED CELL DISTRIBUTION WIDTH 14.2 % (11.5-15.2)
[2017-01-19 04:29] LABS: ANION GAP 9 mEq/L (8-16); CALCIUM 7.6 mg/dL (8.5-10.4); CARBON DIOXIDE 27 mEq/l (22-31); CHLORIDE 103 mEq/L (97-110); CREATININE 0.7 mg/dL (0.7-1.3); GLOMERULAR FILTRATION RATE > 60; GLUCOSE 93 mg/dL (70-100); POTASSIUM 3.3 mEq/L (3.5-5.2); SODIUM 139 mEq/L (134-144)
[2017-01-19] MEDS: KETOROLAC 30 MG/1 ML SDV IVP PRN ×2 (05:36→20:31)
[2017-01-19] MEDS: NS 1,000 ML IV SCH (05:37)
[2017-01-19] MEDS: METOPROLOL TARTRATE 25 MG TAB PO SCH ×2 (09:10→20:30)
[2017-01-19] MEDS: SENNOSIDES/DOCUSATE SODIUM TAB PO SCH ×2 (09:12→20:31)
[2017-01-19] MEDS: ENOXAPARIN 40 MG/0.4 ML SYR SC SCH (09:14)
[2017-01-19] MEDS: ACETAMINOPHEN 325 MG TAB PO PRN ×2 (09:44→19:03)
[2017-01-19] MEDS ORDERED: MAGNESIUM HYDROXIDE 30 ML UDCUP PO ONE (12:57)
[2017-01-19] MEDS ORDERED: POTASSIUM CL 20 MEQ TAB PO ONE (12:58)
--- NOTE | 2017-01-19 15:07 | HOSPPROG ---
Hospitalist Progress Note Assessment/Plan: # acute pancreatitis: with significant abdominal pain and lipase > 6000 as well as radiographic evidence of pancreatitis. Etiology unclear--no history of heavy drinking, no gallstones on imaging, lipid panel unremarkable. Continues to symptomatically improve and tolerating clears, attempting to transition to oral pain meds. Will continue to advance diet as tolerated. Given no clear etiology discovered, lisinopril was discontinued as possible precipitating med. * Will add a little bit of Creon since getting bloating with eating # leukocytosis: wbc continues to trend down. Patient remains afebrile and suspect this is all driven by pancreatitis rather than a secondary infection, will continue to trend, again MRCP pending # paroxysmal a fib: new dx apparently since admission, likely driven by pancreatitis * Will get echocardiogram * Will probably need anticoagulation on discharge. Holding it for now due to severe pancreatitis in concern for hemorrhagic conversion # htn: previously uncontrolled, will continue amlodipine and now metoprolol as above # dvt ppx: lovenox # IP status, may be able to be discharged tomorrow Subjective: Pain seems to be getting better. Is tolerating diet but does feel bloated Objective: Vital Signs Temp Pulse Resp BP Pulse Ox 36.4 C 87 16 135/72 H 95 01/19/17 12:00 01/19/17 12:00 01/19/17 12:00 01/19/17 12:00 01/19/17 12:00 Laboratory Results 01/19/17 03:24 01/19/17 03:24 01/18/17 01/19/17 01/20/17 05:59 05:59 05:59 Intake Total 2982 2650 120 Output Total 1400 776 750 Balance 1582 6954 -713 Tele personally viewed interpreted atrial fibrillation - Physical Exam Constitutional: no apparent distress, appears nourished, not in pain Eyes: anicteric sclera, EOMI Ears, Nose, Mouth, Throat: moist mucous membranes, hearing normal Cardiovascular: irregularly irregular Respiratory: no respiratory distress, no rales or rhonchi, clear to auscultation Gastrointestinal: normoactive bowel sounds, soft, non-tender abdomen, no palpable masses, distension Skin: warm Neurologic: AAOx3 Psychiatric: interacting appropriately, not anxious, not encephalopathic, thought process linear ICD10 Worksheet Patient Problems: Problems Problem Status Onset Pancreatitis Acute
--- NOTE | 2017-01-19 16:36 | ECHO ---
[email or web address] [address] [address] Main: [phone] Fax: Transthoracic Echocardiogram Name: AROLDO REN MR#: [id number] Study Date: 01/19/2017 Study Time: 02:23 PM Date of : 1940 Age: 76 year(s) Height: 182.9 cm (72 in.) Weight: 88.45 kg (195 lb.) BSA: 2.11 m2 Gender: Male Examination: Echo Indication: Atrial Fibrillation Image Quality: Adequate Contrast: Requested by: Mayela Deshpande BP: 135 mmHg/72 mmHg Heart Rate: Rhythm: Atrial fibrillation Indication: Atrial Fibrillation Procedure Staff Executive Casino Host: Ping Huston Reading Physician: Omari Harding Requesting Provider: Conclusions: Normal size left ventricle. EF is 64 %. The left atrium is mildly dilated. The right atrium is mildly dilated. There is mild thickening of the mitral valve leaflets. Trivial mitral valve regurgitation. Aortic valve is not well visualized. There is no aortic valve regurgitation. No aortic valve stenosis is present. The pulmonary artery pressure is moderately increased. Measurements: Chambers Valvular Assessment AV/MV Valvular Assessment TV/PV Normal Normal Normal Name Value Range Name Value Range Name Value Range Ao [place] (MM): 3.5 cm (2.2 cm-3.7 AV Vmax: 1.13 m/s (1 m/s-1.7 TR Vmax: 3.16 mm/s ( - ) cm) m/s) TR PGmax: 40 mmHg ( - ) IVSd (2D): 0.7 cm (0.6 cm-1.1 AV maxP mmHg ( - ) syst. PAP: 50 mmHg ( - ) cm) LVOT Vmax: 0.99 m/s (0.7 m/s-1.1 PV Vmax: 0.76 m/s (0.6 m/s-0.9 LVDd (2D): 5.2 cm (4.2 cm-5.9 m/s) m/s) cm) MV E Vmax: 0.99 m/s ( - ) PV PGmax: 2 mmHg ( - ) LVDs (2D): 2.9 cm (2.1 cm-4 cm) LVPWd (2D): 0.9 cm (0.6 cm-1 cm) LVEF (BP): 64 % (>=55 %) RVDd(2D): 3.2 cm (1.9 cm-3.8 cmmm) Continued Measurements: Patient: AROLDO REN Study Date: 01/19/2017 Page 1 of 2 02:23 PM Chambers Valvular Assessment AV/MV Valvular Assessment TV/PV Name Value Name Value Name Value LADs: 4.1 cm MV E' Septal: 0.10 m/s CVP (est.): 10 mmHg LADs Lon.4 cm MV E/E' Septal: 9.50 LA Area: 25.2 cm2 MV E/E' Lateral: 8.10 LA Volume: 81 ml LA Volume Index: 38.4 ml/m2 RA Area: 18.4 cm2 Additional Vessels Name Value Ao Ascendin.6 cm Findings: Left Ventricle: Normal size left ventricle. No LV hypertrophy. Normal global systolic LV function. EF is 64 %. No regional wall motion abnormality. Unable to assess diastolic dysfunction. Right Ventricle: Normal size right ventricle. Normal RV function. Left Atrium: The left atrium is mildly dilated. Right Atrium: The right atrium is mildly dilated. Mitral Valve: There is mild thickening of the mitral valve leaflets. No mitral stenosis is present. Trivial mitral valve regurgitation. Aortic Valve: Aortic valve is not well visualized. There is no aortic valve regurgitation. No aortic valve stenosis is present. Tricuspid Valve: The tricuspid valve is normal in appearance and function. Trivial to mild tricuspid valve regurgitation. The pulmonary artery pressure is moderately increased. Pulmonic Valve: The pulmonic valve is normal in appearance and function. There is no pulmonic regurgitation seen. Aorta: Normal size aortic root measuring 3.5 cm. Normal size ascending aorta measuring 3.6 cm. IVC: The IVC is dilated. There is greater juliana 50% respiratory excursion. Pericardium: Trivial pericardial effusion. There is a pleural effusion. (No Signature Object) Patient: AROLDO REN Study Date: 01/19/2017 Page 2 of 2 02:23 PM [id number]
[2017-01-19] MEDS: LIPASE 12,000/AMYLASE/PROTEASE (CREON) 1 CAP PO SCH (18:53)
[2017-01-20] MEDS: ACETAMINOPHEN 325 MG TAB PO PRN ×2 (03:45→10:48)
[2017-01-20 04:38] LABS: ANION GAP 9 mEq/L (8-16); CALCIUM 8.1 mg/dL (8.5-10.4); CARBON DIOXIDE 27 mEq/l (22-31); CHLORIDE 105 mEq/L (97-110); CREATININE 0.8 mg/dL (0.7-1.3); GLOMERULAR FILTRATION RATE > 60; GLUCOSE 103 mg/dL (70-100); POTASSIUM 3.5 mEq/L (3.5-5.2); SODIUM 141 mEq/L (134-144)
[2017-01-20 07:41] VITALS: RESP 20
[2017-01-20] MEDS: LIPASE 12,000/AMYLASE/PROTEASE (CREON) 1 CAP PO SCH ×2 (10:00→13:12)
[2017-01-20] MEDS: ENOXAPARIN 40 MG/0.4 ML SYR SC SCH (10:00)
[2017-01-20] MEDS: METOPROLOL TARTRATE 25 MG TAB PO SCH (10:00)
[2017-01-20] MEDS: SENNOSIDES/DOCUSATE SODIUM TAB PO SCH (10:01)
[2017-01-20 11:26] VITALS: BP 145/93; PULSE 92; TEMP 97.9
[2017-01-20 13:41] VITALS: O2SAT 92
--- NOTE | 2017-01-20 15:20 | ASDISCHSUM ---
Discharge Information Plan Status:Home with No Needs Medically Cleared to Leave:01/19/2017 Discharge Date:01/20/2017 02:26 PM CM D/C Disposition:Home, Routine, Self-Care ADT D/C Disposition:Home, Routine, Self-Care Projected Discharge Date:01/20/2017 02:26 PM Transportation at D/C:Family Discharge Delay Reason: Follow-Up Date:01/20/2017 02:26 PM Discharge Slot: Final Diagnosis: Placement Information Patient Contact Information Contact Name:EARL Relationship: Address:[address] [place] Alternate Phone: State/Zip Code:[place] [address] Email: Financial Information Financial Class:Medicare Advantage Plans Primary Plan Desc:[employer] MEDICARE ADV Primary Plan Number:[id number] Secondary Plan Desc: Secondary Plan Number: Assessment Information [facility] Initial CM Assessment Living Arrangements What is your living Answers: With Spouse arrangement? Who do you live with? Type Of Residence What kind of residence do Answers: House you live in? Discharge Plan Comments Coordination Status Comments Notes: CM spoke w/ LAURA Bentley regarding D/C POC. Pt is a 76 y/o man admitted for pancreatitis. Anticipates that pt will d/c independent when medically stable w/ supportive . No therapies ordered at this time. CM available for d/c needs. Plan: Independent Date Signed: 01/15/2017 10:11 AM Electronically Signed By:MINNA Maradiaga [facility] CM Progress Note CM Note KOURTNEY Note Notes: Continues to have abdominal pain, but reports that it's better. PT reports that patient will be independent of HC needs. Date Signed: 01/18/2017 03:17 PM Electronically Signed By:Maribel Perry LCSW LACE LACE Length of stay for Answers: 4-6 days current admission Acuity / Level of Care Answers: Was the patient admitted to hospital via the emergency department? Yes: Emergency dept visits in Answers: 0 last 6 months Score: 7 Date Signed: 01/20/2017 12:12 PM Electronically Signed By:Holli Stroud RN Intervention Information
--- NOTE | 2017-01-20 20:00 | GDS ---
[f rep st] DISCHARGE SUMMARY DISCHARGE DIAGNOSES: 1. Severe acute pancreatitis, uncertain etiology. 2. New diagnosis of atrial fibrillation. 3. Hypertension. HISTORY: This is a 76-year-old male who presented with abdominal pain, nausea, and vomiting. HOSPITAL COURSE: Patient was diagnosed with acute pancreatitis. His lipase was 6000. He had a CT s can which showed significant pancreatitis. He was kept n.p.o. He did undergo abdominal ultrasound w hich did not show any cholelithiasis or choledocholithiasis. He also underwent MRCP, which, although of poor quality, did not show any causes for his pancreatitis. He had been on lisinopril; this was discontinued. Patient actually was admitted with atrial fibrillation, which is a new diagnosis for h im. It has been noted this is paroxysmal on tele, although the last several days that I have seen flavia long, he has been in continuous atrial fibrillation. He was started on metoprolol for rate control. We have avoided anticoagulation at this time due to severe pancreatitis and the risk for hemorrhagic tr ansformation. He will follow up with Cardiology in 2 weeks. We could then consider anticoagulation. His CHADS score is 3. He will be sent home on aspirin. His lisinopril was discontinued and switched over to Norvasc. DISPOSITION: Home. DISCHARGE MEDICATIONS: He will discontinue his lisinopril and will be on Norvasc and metoprolol. He is also been given aspirin and Creon to help some of the bloating. TIME SPENT: Greater than 30 minutes were spent on discharge. /[id number]/MODL
== END 2017-01-20 14:26 | disposition home or self-care (01) | DRG 440 ==
LOC: F2W 03:49 → OBSVTOIN 15:02
PROVIDERS: ADMIT Student in an Organized Health Care Education/Training Program; ATTEND Student in an Organized Health Care Education/Training Program
DX: K85.90 Acute pancreatitis without necrosis or infection, unspecified (principal); I48.0 Paroxysmal atrial fibrillation; I10 Essential (primary) hypertension; Z23 Encounter for immunization
CPT/HCPCS: 96374; 97110-GP; 97116-GP; 97161-GP; G0008; G0009; G8978-GP-CJ; G8979-GP-CI; G8980-GP-CI; J1170; J1650; J1885; J2405; Q9967

== ENCOUNTER → 2018-03-26 | Outpatient (CLI) | payer OTHER ==
[~2018-03-26] MED LIST: GADOBUTROL 10 ML VIAL IVP ONE
== END ==
LOC: FIMAGING 08:11
PROVIDERS: ATTEND Physician Assistant
DX: H90.5 Unspecified sensorineural hearing loss (principal); H93.12 Tinnitus, left ear
CPT/HCPCS: 70553; A9585; 82565-PO